=== PATIENT | male | born 1950 | race Caucasian/White ===

== ENCOUNTER → 2023-09-16 06:21 | Day surgery (SDC) | payer MEDICARE, OTHER, SELFPAY ==
[2023-09-16 07:44] LABS: Glucose - Point of Care 124 mg/dl (70-99)
== END ==
LOC: GI 06:21
PROVIDERS: ATTENDING PHYSICIAN Internal Medicine Gastroenterology
DX: Z12.11 Encounter for screening for malignant neoplasm of colon (principal); Z86.010 Personal history of colon polyps; K64.8 Other hemorrhoids; Q43.8 Other specified congenital malformations of intestine; D12.0 Benign neoplasm of cecum; D12.2 Benign neoplasm of ascending colon; D12.3 Benign neoplasm of transverse colon; D12.5 Benign neoplasm of sigmoid colon
CPT/HCPCS: 45385; 88305; 82962

== ENCOUNTER 2024-10-11 16:47 | Emergency (ER) | payer MEDICARE, OTHER, SELFPAY ==
[2024-10-11 17:03] VITALS: BP 123/64
--- NOTE | 2024-10-11 17:06 | ED.SKININJ ---
HPI-Injury
<Kenny Quarles PA-C - Last Filed: 10/11/24 17:07>
General
Chief Complaint: Skin Problem
Time Seen by Provider: 10/11/24 20:37
<Janneth Brooks PA-C - Last Filed: 10/11/24 23:46>
General
Source: patient
Exam Limitations: none
History of Present Illness-Injury
Initial Injury comments:
73yoM with a history of hypertension, hyperlipidemia, prediabetes, and obesity presenting for evaluation of left leg redness and swelling x 2 weeks. Symptoms were initially present on both legs but the right leg now appears normal. His erythema
and swelling seems to actually be somewhat improved from symptom onset. He denies any pain to the extremity. He mention his symptoms to his PCP today during his office visit and he was sent to the ED for evaluation. Patient denies any fevers,
chills, chest pain, shortness of breath. No prior history of MRSA. Patient was seen in the ED in April 2022 for similar complaints and was prescribed Keflex.
ED Provider Triage
<Kenny Quarles PA-C - Last Filed: 10/11/24 17:07>
-
Patient seen by provider in Triage?: Seen in Triage
Attestation: A medical screening examination has been initiated by a qualified medical provider. Based on the assessment performed at this time, it has been determined that an emergent medical condition may exist and the patient has been informed
that further medical evaluation and possible additional diagnostic testing may be needed.
HPI: 73-year-old male prediabetic with history of hypertension hyperlipidemia presents with swelling redness and pain to the left leg. Initially seen by family doctor sent in for treatment of cellulitis. He denies fever. Not currently on an
antibiotic. Exam in triage room consistent with swollen erythematous leg. Basic labs ordered venous ultrasound ordered
GENERAL: Alert , in no apparent distress
EYE: No visual abnormalities.
NECK: Trachea midline
ENT: No visible abnormalities.
LUNGS: No acute respiratory distress
NEUROLOGICAL: Alert and oriented
SKIN: Skin intact. No visible changes.
MUSCULOSKELETAL: Moving extremities normally
PSYCH: Normal and appropriate interaction.
This is a medical evaluation conducted in person to initiate diagnostic evaluation and provide initial therapeutics. Please see further documentation by the treating clinician.
Phy Exam
<Janneth Brooks PA-C - Last Filed: 10/11/24 23:46>
General Physical Exam
General Presentation: well appearing and no apparent distress
General age: appears stated age
General Skin: warm and dry
General Habitus: normal
General Mental: alert
ENT Exam
ENT Exam: normocephalic
Pulmonary Exam
Pulmonary Exam: no respiratory distress
Neurological Exam
Neurological Exam: alert
[place] Coma Scale
Eye Opening: Spontaneous
Verbal Response: Oriented
Motor Response: Obeys Commands
GCS Total Score: 15
Skin Exam
Skin Exam: warm/dry and other (Left leg: Erythema noted to the distal aspect of the L lower leg. Mildly warm to touch. 2-3+ edema noted. No wounds, drainage, or fluctuance. Extremity warm and well perfused. )
Psychiatric Exam
Psychiatric Exam: normal mood/affect
Course
<Kenny Quarles PA-C - Last Filed: 10/11/24 17:07>
Orders/Labs/Results
Orders:
Orders
10/11/24 17:06
Venous Doppler Lwr Ext Left [US Periph Venous LOWER Ext LT] Urgent
Comment:
Reason For Exam: swelling
10/11/24 17:12
Complete Blood Count/With Diff Urgent
Comprehensive Metabolic Panel Urgent
10/11/24 20:48
Cephalexin Monohydrate [Keflex] 500 mg PO NOW STA
Abnormal Lab Results
10/11/24
17:12
RBC 3.75 L 10^6/uL
(4.70-6.10)
Hgb 11.3 L g/dL
(13.0-18.0)
Hct 35.0 L %
(39.0-52.0)
MCHC 32.3 L g/dL
(33.0-37.0)
Absolute Neuts (auto) 7.2 H 10^3/uL
(1.4-6.5)
Absolute Monos (auto) 1.0 H 10^3/uL
(0.1-0.6)
Lymphocytes % 12.3 L %
(20.5-51.1)
Monocytes % 10.1 H %
(1.7-9.3)
BUN 27 H mg/dl
(9-20)
Creatinine 1.6 H mg/dL
(0.7-1.3)
Glucose 122 H mg/dl
(70-99)
10/11/24 17:12
10/11/24 17:12
Vital Signs
Initial and Last Documented VS:
Initial Vital Signs
Temp Pulse Resp BP Pulse Ox
98.3 F 92 20 123/64 97
10/11/24 17:03 10/11/24 17:03 10/11/24 17:03 10/11/24 17:03 10/11/24 17:03
Last Documented Vital Signs
Temp Pulse Resp BP Pulse Ox
98.9 F 84 18 127/66 97
10/11/24 20:30 10/11/24 20:30 10/11/24 20:30 10/11/24 20:30 10/11/24 20:30
Willielt;Janneth Brooks PA-C - Last Filed: 10/11/24 23:46>
Orders/Labs/Results
Orders:
Orders
10/11/24 17:06
Venous Doppler Lwr Ext Left [US Periph Venous LOWER Ext LT] Urgent
Comment:
Reason For Exam: swelling
10/11/24 17:12
Complete Blood Count/With Diff Urgent
Comprehensive Metabolic Panel Urgent
10/11/24 20:48
Cephalexin Monohydrate [Keflex] 500 mg PO NOW STA
Abnormal Lab Results
10/11/24
17:12
RBC 3.75 L 10^6/uL
(4.70-6.10)
Hgb 11.3 L g/dL
(13.0-18.0)
Hct 35.0 L %
(39.0-52.0)
MCHC 32.3 L g/dL
(33.0-37.0)
Absolute Neuts (auto) 7.2 H 10^3/uL
(1.4-6.5)
Absolute Monos (auto) 1.0 H 10^3/uL
(0.1-0.6)
Lymphocytes % 12.3 L %
(20.5-51.1)
Monocytes % 10.1 H %
(1.7-9.3)
BUN 27 H mg/dl
(9-20)
Creatinine 1.6 H mg/dL
(0.7-1.3)
Glucose 122 H mg/dl
(70-99)
10/11/24 17:12
10/11/24 17:12
Vital Signs
Initial and Last Documented VS:
Initial Vital Signs
Temp Pulse Resp BP Pulse Ox
98.3 F 92 20 123/64 97
10/11/24 17:03 10/11/24 17:03 10/11/24 17:03 10/11/24 17:03 10/11/24 17:03
Last Documented Vital Signs
Temp Pulse Resp BP Pulse Ox
98.9 F 84 18 127/66 97
10/11/24 20:30 10/11/24 20:30 10/11/24 20:30 10/11/24 20:30 10/11/24 20:30
<Janneth Brooks PA-C - Last Filed: 10/11/24 23:46>
MDM/Problems Addressed
Differential Diagnosis Includes:
73yoM here with L lower leg redness/swelling x 2 weeks. Symptoms actually somewhat improved. Sent here by PCP. Denies f/c. VSS. He is well-appearing in no acute distress. Exam reveals edema and erythema to the distal left leg. Extremity is
neurovascularly intact. Differential diagnosis includes but is not limited to: Cellulitis, chronic venous stasis changes, DVT, no evidence of abscess/NSTI
Workup obtained in triage. Venous duplex is negative for DVT. White count normal. Creatinine is 1.6, unclear baseline as no prior labs are available for comparison. Repeat vitals remain normal. No indication for hospitalization at this time.
He was started on a course of Keflex. Advised elevation and compression stockings to help with swelling. Advised close follow-up with PCP and ED return precautions discussed. Patient in agreement with plan and was discharged in stable condition.
<Janneth Brooks PA-C - Last Filed: 10/11/24 23:46>
*Critical Care Note
Total Time (30-74mins, 75-104mins- exclusive of procedures): Not Applicable
ED Attending Note
<Kenny Quarles PA-C - Last Filed: 10/11/24 17:07>
-
Portions of this chart may have been created with voice recognition software.� Occasional wrong word or��sound alike� substitutions may have occurred due to the inherent limitations of voice recognition software.
Discharge Plan
Departure
Patient Disposition: Home (Routine Discharge)
Date of Disposition: 10/11/24
Time of Disposition: 20:50
Patient with high blood pressure during this ER visit?: No
Discharge Problem:
Cellulitis of left lower extremity
Instructions: Cellulitis (Skin Infection), Adult (DC)
Prescriptions:
New
cephalexin 500 mg capsule
500 mg PO Q6H 7 Days Qty: 27 0RF
No Action
cephalexin 500 mg capsule
500 mg PO QID 7 Days Qty: 28 0RF
Activity Restrictions/Additional Instructions:
Take antibiotics as prescribed. Elevate your leg and wear compression stockings to help with swelling.
Please follow-up with your family doctor next week. Return to the ER with any worsening symptoms, spreading redness, fevers, or chills.
Interventions
Interventions:
*Risk Screen - Suicide Last Done: 10/11/24 17:03
*General Assessment Last Done: 10/11/24 17:03
*Neglect/Abuse Screening Last Done: 10/11/24 17:03
ED- Fall Risk Assessment Last Done: 10/11/24 20:55
*ED COVID-19 Vaccine History Last Done: 10/11/24 17:03
*Nursing Disposition Last Done: 10/11/24 20:55
ED-Skin Assessment Last Done: 10/11/24 20:55
Discharge Date and Time
Discharge Date/Time: 10/11/24 21:12
Print Language: TAMAZIGHT
[2024-10-11 17:24] LABS: % Basophils 0.4 % (0-2); % Eosinophils 3.2 % (0-6); % Immature Granulocytes 0.4 % (0-0.5); % Lymphocytes 12.3 % (20.5-51.1); % Monocytes 10.1 % (1.7-9.3); % Neutrophils 73.6 % (42.2-75.2); Absolute Eosinophils 0.3 10^3/uL (0-0.7); Absolute Lymphocytes 1.2 10^3/uL (1.2-3.4); Absolute Neutrophils 7.2 10^3/uL (1.4-6.5); Hemoglobin 11.3 g/dL (13.0-18.0); Mean Corp Hgb Conc. 32.3 g/dL (33.0-37.0); Mean Corpuscular Hgb 30.1 pg (27.0-31.0); Mean Corpuscular Volume 93.3 fL (80.0-94.0); Mean Platelet Volume 9.4 fL (7.4-10.4); Nucleated Red Blood Cells % 0 % (-); Platelet Count 202 10^3/uL (130-400); Red Blood Cell Count 3.75 10^6/uL (4.70-6.10); Red Cell Dist. Width 13.5 % (11.5-14.5); White Blood Cell Count 9.7 10^3/uL (4.8-10.8)
[2024-10-11 17:36] LABS: ALT (SGPT) 23 U/L (0-50); AST (SGOT) 23 U/L (17-59); Albumin 4.4 g/dl (3.5-5.0); Alkaline Phosphatase 100 U/L (38-126); Blood Urea Nitrogen 27 mg/dl (9-20); Calcium 9.1 mg/dl (8.4-10.2); Carbon Dioxide 23 mmol/L (22-30); Chloride 102 mmol/L (98-107); Glucose 122 mg/dl (70-99); Potassium 4.1 mmol/L (3.5-5.1); Sodium 137 mmol/L (135-145); Total Bilirubin 0.8 mg/dl (0.2-1.3); Total Protein 7.2 g/dl (6.3-8.2); eGFR 44.93
[2024-10-11 20:30] VITALS: BP 127/66
[2024-10-11] MEDS: KEFLEX 500 MG PO (20:52)
== END 2024-10-11 21:12 | disposition home or self-care (01) ==
LOC: EMR 16:47
PROVIDERS: Physician Assistant; EMERGENCY PHYSICIAN Emergency Medicine; FAMILY PHYSICIAN Physician Assistant Medical
DX: L03.116 Cellulitis of left lower limb (principal); R22.42 Localized swelling, mass and lump, left lower limb; I10 Essential (primary) hypertension; E78.00 Pure hypercholesterolemia, unspecified; R73.03 Prediabetes; E66.9 Obesity, unspecified
CPT/HCPCS: 99284; 80053; 85025; 93971

== ENCOUNTER 2024-11-08 13:11 | Inpatient (IN) | payer MEDICARE, OTHER, SELFPAY ==
[2024-11-08] VITALS (19 sets, daily range): BP systolic 77–181; BP diastolic 53–151; BMI 32.9; BMI 31.3
--- NOTE | 2024-11-08 09:50 | ED.GENMED ---
History of Present Illness
General
Chief Complaint: Fall
Source: patient and ambulance crew
Time Seen by Provider: 11/08/24 09:40
History of Present Illness
History of Present Illness:
74-year-old male with past medical history of hypertension, hyperlipidemia, [id number] diabetes presenting to the ER via EMS from home after he reportedly fell this past Wednesday and has been on the ground since, unable to get himself up,
found by his niece who contacted EMS. Patient states that the day of the fall he was walking to the dining room with coffee and sandwich and hand and states he is overall unsure as to how he fell but was unable to get himself up off the ground.
Patient notes that he has chronic back pain and when this flares he will sometimes need to use an assistive device to walk but normally ambulates without any significant difficulty or need for assistive device on a regular basis. Patient states his
only concern presently is he aggravated his back pain during the fall. Patient denies any headache, visual disturbances, focal weakness or numbness, chest pain, shortness of breath, abdominal pain, nausea, vomiting or any other concerns. Denies
any use of anticoagulants. Patient does note that at the end of August his and he has been living on his own since that time. He reports significant constipation in the 3 weeks following his 's passing and that his primary
care provider had given him medication to help him go to the bathroom and states after taking that medicine he had significant diarrhea but states this did help the constipation.
Past History
Past History
ED Past Medical History: HTN, Hypercholesterolemia and NIDDM
ED Past Surgical History: Orthopedic
Social History
Tobacco: Non-smoker
Alcohol: None
Drug: None
Personal:
Living: alone
Review of Systems
Review of Systems
All Other Systems: ROS reviewed and negative except as documented in HPI and ROS
Phy Exam
Physical Exam
Physical Exam:
GENERAL: Alert , in no apparent distress, malodorous, smells of old urine and feces, patient covered in feces along the urogenital region, back and buttock
EYE: clear conjunctiva b/l
HEAD: NCAT
ENT: mmm.
CARDIAC: Regular rate and rhythm .
LUNGS: Clear breath sounds bilaterally, no acute respiratory distress, no wheezes/rales/rhonchi
ABDOMEN: Soft, without focal tenderness, no r/g, no cvat
NEUROLOGICAL: Alert and oriented to person place and time
SKIN: Warm and dry, significant skin breakdown/sacral decubitus ulcer ranging from stage I to stage II. There is also stage I pressure ulcer to the upper back
MUSCULOSKELETAL: No edema, well perfused.
PSYCH: Normal and appropriate interaction.
Scores
Heart Failure Risk
Heart Failure Risk Score: Not Applicable
Heart Score for Chest Pain Patients
STEMI patient?: Not applicable
Withdrawal Assessment of Alcohol
Withdrawal Assessment Completed?: Not applicable
Course
Orders/Labs/Results
Orders:
Orders
11/08/24 09:48
Electrocardiogram (*1) Urgent
Reason for Study: Syncope
EKG- Treatment ONCE
11/08/24 09:49
CT Head W/o Iv Contrast Urgent
Comment:
Reason For Exam: fall, weakness
11/08/24 09:57
CPK [Creatine Phosphokinase] Urgent
Complete Blood Count/With Diff Urgent
Comprehensive Metabolic Panel Urgent
Magnesium Urgent
Urinalysis Reflex To Culture Urgent
Date Specimen was Collected: 11/08/24
Time Specimen was Collected: 09:54
Urine Microscopic Reflex Cult Urgent
11/08/24 10:33
0.9% Sodium Chloride 1000 ml [Nss] 1,000 ml IV BOLUS
11/08/24 12:46
Admit/Transfer Patient As Directed
Co-Sign Provider:
Level of Care: Inpatient admission
Assign to:: Telemetry
Physician / Group: Ayo Demarco
Diagnosis: Ambulatory dysfunction
Reason for Telemetry: Arrhythmia
Date to Stop Telemetry: 11/11/24
Time to Stop Telemetry: 11:00
Reason for Hospitalization: Ambulatory dysfunction, traumatic fall, cellulitis
Expected length of stay greater than two midnights?: Yes
ELOS- Estimated Length of Stay in days: 3
I certify the patient meets the requirements for IP care: Yes
11/08/24 12:48
PRN Pain Medication Management As Directed
May give lesser potent ordered pain med per pt: Yes
preference::
Protocol:: Medication orders for pain may be administered in a
manner that supports deferring to patient preference
when the pt is:
- Requesting an ordered lesser potent pain medication.
Least to most potent pain medications are defined
as: acetaminophen < NSAID < tramadol < opioids
(morphine, oxycodone, hydromorphone).
- Requesting a lesser dose of the same medication IF
ORDERED.
- Requesting a less intrusive route of administration
if both routes are prescribed by the provider (PO <
IV).
11/08/24 12:58
Code Status As Directed
Resuscitation Status: Full Code
11/11/24 11:00
DC Protocol for Telemetry ONCE
Abnormal Lab Results
11/08/24
09:57
WBC 15.8 H 10^3/uL
(4.8-10.8)
RBC 4.38 L 10^6/uL
(4.70-6.10)
Abs Immat Gran (auto) 0.1 H 10^3/uL
(0-0.05)
Absolute Neuts (auto) 13.1 H 10^3/uL
(1.4-6.5)
Absolute Lymphs (auto) 1.0 L 10^3/uL
(1.2-3.4)
Absolute Monos (auto) 1.6 H 10^3/uL
(0.1-0.6)
Immature Gran % 0.6 H %
(0-0.5)
Neutrophils % 82.9 H %
(42.2-75.2)
Lymphocytes % 6.0 L %
(20.5-51.1)
Monocytes % 10.1 H %
(1.7-9.3)
Sodium 150 H mmol/L
(135-145)
Chloride 113 H mmol/L
(98-107)
BUN 83 H mg/dl
(9-20)
Creatinine 2.1 H mg/dL
(0.7-1.3)
Glucose 174 H mg/dl
(70-99)
Creatine Kinase 295 H U/L
(55-170)
Urine Ketones 1+ A
(Negative)
Urine Albumin (Reflex) 2+ A
(Neg - Trace)
11/08/24 09:57
11/08/24 09:57
Vital Signs
Initial and Last Documented VS:
Initial Vital Signs
Temp Pulse Resp BP Pulse Ox
97.8 F 103 18 181/94 99
11/08/24 09:45 11/08/24 09:45 11/08/24 09:45 11/08/24 09:45 11/08/24 09:45
Last Documented Vital Signs
Temp Pulse Resp BP Pulse Ox
97.8 F 167 30 162/151 97
11/08/24 09:45 11/08/24 13:15 11/08/24 13:15 11/08/24 13:00 11/08/24 13:15
MDM/Problems Addressed
Differential Diagnosis Includes:
Electrolyte derangement, acute kidney injury, rhabdomyolysis, deconditioning, stroke, intracranial bleeding, diabetic complication
MDM/Problems Addressed:
74-year-old male presenting to the emergency department via EMS for evaluation after he was found by family, reports a fall on Wednesday and has been on the ground since that time. Patient with significant skin breakdown on back and buttock. Notes he
was having large-volume stool following laxative due to constipation. Possible electrolyte derangement due to the fluid loss, concern for acute kidney injury/rhabdomyolysis due to being on the ground for extended period of time. Patient clearly
not a candidate to be discharged home given he was unable to get himself up off the ground for 5 days. Will check labs, EKG, CT of the head. Wound care initiated. Plan to admit patient to hospitalist team for further treatment
*Radiology
Radiology exam reviewed: radiology read reviewed
*Pulse Oximetry
Patient hypoxic: no
*EKG
Interpreted by ED Provider?: Yes
Heart Rate: 103
Rate: tachycardiac
Rhythm: sinus and PAC's
Gillett: normal axis
Ischemia: no ischemia
*Critical Care Note
Total Time (30-74mins, 75-104mins- exclusive of procedures): Not Applicable
Data Reviewed
Review of Other/Old Records Reveals: Labs and Records
Patient Management
Discussion with other providers: Hospitalist
Escalation/DeEscalation of care consider admission/obs:
Patient's labs show a leukocytosis which is likely reactive, he has acute kidney injury and mild hyponatremia likely dehydration related. Patient otherwise remained stable, CT of the head was unremarkable. Hospitalist team to admit.
ED Attending Note
-
Portions of this chart may have been created with voice recognition software.� Occasional wrong word or��sound alike� substitutions may have occurred due to the inherent limitations of voice recognition software.
Discharge Plan
Departure
Patient Disposition: Admit
Date of Disposition: 11/08/24
Time of Disposition: 11:14
Presentation/result/management discussed w/ accepting MD/DO: Hospitalist
Discharge Problem:
Generalized weakness, MARC (acute kidney injury), Accidental fall, Hypernatremia
Interventions
Interventions:
*Risk Screen - Suicide Last Done: 11/08/24 09:45
*General Assessment Last Done: 11/08/24 09:45
*Neglect/Abuse Screening Last Done: 11/08/24 09:45
*ED COVID-19 Vaccine History Last Done: 11/08/24 09:45
ED-Musculoskeletal Assessment Last Done: 11/08/24 09:45
ED- Neurological Assessment Last Done: 11/08/24 09:45
ED-Skin Assessment Last Done: 11/08/24 09:45
[2024-11-08 10:25] LABS: ALT (SGPT) 18 U/L (0-50); AST (SGOT) 25 U/L (17-59); Albumin 4.1 g/dl (3.5-5.0); Alkaline Phosphatase 117 U/L (38-126); Blood Urea Nitrogen 83 mg/dl (9-20); Calcium 9.5 mg/dl (8.4-10.2); Carbon Dioxide 22 mmol/L (22-30); Chloride 113 mmol/L (98-107); Estimated Creatinine Clearance 43 ml/min; Glucose 174 mg/dl (70-99); Magnesium 2.3 mg/dl (1.6-2.3); Potassium 4.6 mmol/L (3.5-5.1); Sodium 150 mmol/L (135-145); Total Bilirubin 0.7 mg/dl (0.2-1.3); Total Protein 7.4 g/dl (6.3-8.2); eGFR 32.22
[2024-11-08 10:33] LABS: Creatine Phosphokinase 295 U/L (55-170)
[2024-11-08 10:47] LABS: Urine Albumin 2+ (Neg - Trace); Urine Bilirubin Negative (Negative); Urine Character Clear (Clear); Urine Color Yellow; Urine Glucose Negative (Negative); Urine Ketone 1+ (Negative); Urine Leukocyte Negative (Negative); Urine Nitrite Negative (Negative); Urine Occult Blood Negative (Negative); Urine Urobilinogen Negative (Neg - 1+)
[2024-11-08 11:12] LABS: % Basophils 0.3 % (0-2); % Eosinophils 0.1 % (0-6); % Immature Granulocytes 0.6 % (0-0.5); % Monocytes 10.1 % (1.7-9.3); % Neutrophils 82.9 % (42.2-75.2); Absolute Immature Granulocytes 0.1 10^3/uL (0-0.05); Absolute Monocytes 1.6 10^3/uL (0.1-0.6); Absolute Neutrophils 13.1 10^3/uL (1.4-6.5); Hematocrit 40.5 % (39.0-52.0); Hemoglobin 13.5 g/dL (13.0-18.0); Mean Corp Hgb Conc. 33.3 g/dL (33.0-37.0); Mean Corpuscular Hgb 30.8 pg (27.0-31.0); Mean Corpuscular Volume 92.5 fL (80.0-94.0); Mean Platelet Volume 9.6 fL (7.4-10.4); Nucleated Red Blood Cells % 0 % (-); Platelet Count 301 10^3/uL (130-400); Red Blood Cell Count 4.38 10^6/uL (4.70-6.10); Red Cell Dist. Width 13.6 % (11.5-14.5); White Blood Cell Count 15.8 10^3/uL (4.8-10.8)
[2024-11-08] MEDS: NSS 1000 IV ×2 (11:14→18:33)
[2024-11-08 11:42] LABS: Urine Mucus Many
[2024-11-08 11:43] LABS: Urine Amorphous Seen
[2024-11-08 11:46] LABS: Urine Red Blood Cell 0-2 /HPF (0-2); Urine Urothelial Cell 0-2 /LPF (FEW); Urine White Cell 0-2 /HPF (0-5)
--- NOTE | 2024-11-08 13:45 | HPS.HSE ---
Addendum entered and electronically signed by Ayo Demarco MD 11/09/24 13:37:
74 male history of hypertension hyperlipidemia type 2 diabetes prostate CA s/p radiation therapy and Gout
Presents after being found by niece on the floor x 5 days. States he believed he tripped over a chair that was in front of the freezer as he states that he was able to place his coffee cup on the countertop before falling. He is found in his feces
and urine.
Noted to have a Cr of 2.1 with a baseline of 1.6. CK less than 300. While in the ED I noted that
He had an irregular rhythm. Telemetry difficult to tell if SVT or irregular rhythm such as SVT with abbrency. Therefore, attempted vagal maneuvers with a decrease in heart rate by 30 point however with rebound quickly to the 140s 160s.
Fall, sounds mechanical
-PT/OT
SVT/SVT with abbrency
-Started on IV Amio
-Tele
-2d echo
-Tsh
MARC on CKD stage 3a/3b
Likely related to dehydration
-RBUS
-Urine studies
-IVF
-Avoid nephrotoxins and hypotension
HTN
-Antihypertensive held for lower BP
-Once BP improved can resume slowly
TypeII DM
-On metformin (held)
-Accucheck, SSI, Bg 140-180, CCdiet
B12 Def
-Provide supplementation
Original Note:
Family Physician
-
Family Physician: Corie Rogers
Chief Complaint
-
Ambulatory dysfunction, recent fall, bilateral lower extremity redness
History of Present Illness
74-year-old male with past medical history of hypertension, hyperlipidemia, type 2 diabetes, prostate cancer status post radiation therapy 01/03/2024 and gout presented to the ER via EMS after falling on Wednesday and unable to get himself up off the
ground since then. He was found by his niece who contacted EMS. He was found covered in urine and feces. He stated prior to the fall, he felt unsteady on his feet. But he denies any feelings of passing out, passing out, dizziness as he remembered
to put his coffee on the counter before falling so that the cup would not break. On the floor, he was mostly on his right side of his body and back. He did try to scoot on the floor which resulted in rug banda. He denies any chest pain, shortness
of breath, heart palpitations, fevers, chills, sore throat, headache, cough, nausea, vomiting, diarrhea, numbness, tingling, vision changes, dizziness.. Of note, patient had increased bilateral lower extremity redness and swelling. By Wednesday
afternoon, the swelling and redness went down. He states he believes it is due to being out of all of the extra fluid in his body. He had a cardiology appointment scheduled for November 15 to evaluate the cause of his bilateral lower extremity
swelling. He generally sleeps in a recliner due to back pain, has had increased shortness of breath with exertion recently.
He was here in the ED on 10/11 due to left leg swelling and redness. He stated prior to coming in he had bilateral lower extremity swelling, however after coming in for what ever reason his right leg decreased in size. He was sent home on 10 days
of Keflex for cellulitis. He stated the redness stayed since his visit to the ED despite the antibiotics until that Wednesday.
Patient stated that his in August, and since then he has not been doing well.
In the ED on admission BP 152/114, HR 103, RR 18, 97.8 F, 98% on room air, WBC 15.8, Na 150, BUN 83, Cr 2.1, CK 295. Head CT (-) for bleed, UA no infx, EKG sinus tach with PVC. s/p 1L NSS. However, while in ED, HR increased into 150-160s. Repeat EKG
revealed a.flutter. Vagal maneuvers were ineffective. BP started to drop to 77/53. After discussion with ED docs, 500cc bolus given and BP improved. Cardiology consulted.
Medical History
Past Medical History
Past Medical History: Reports Other
Additional Past Medical History:
HTN, HLD, DMII, Prostate cancer s/p radiation therapy 12/2023, gout
Past Surgical History: Reports Other (Cataract, knee arthoscopy, back surgery 1983)
Social History
Tobacco: Former Smoker (Quite in 1983, prior 20 years )
Alcohol: Occasional
Drug: None
Personal: Single
Living: Alone
Employment: Retired
Family History
Family History: Other (Father leukemia, Mother skin cancer, paternal uncle pancreatic cancer, maternal aunt DM)
Allergies / Home Medications
Allergies reflects when Allergies were last updated in [facility] [email or web address].
Home Medications with original date entered in [facility] [email or web address]
Allergy/Medication List:
Allergies
Allergy/AdvReac Type Severity Reaction Status Date / Time
No Known Allergies Allergy Verified 10/11/24 17:06
Home Medications
amlodipine 10 mg-benazepril 40 mg capsule 1 cap PO DAILY 11/08/24
atorvastatin 10 mg tablet 10 mg PO QPM 11/08/24
benzocaine 10 % mucosal gel (Anbesol (benzocaine)) 1 applic mucous membrane DAILYPRN PRN gum pain 11/08/24
clotrimazole-betamethasone 1 %-0.05 % topical cream 1 applic topical DAILYPRN PRN whole body rash 11/08/24
hydrochlorothiazide 50 mg tablet 50 mg PO DAILY 11/08/24
ibuprofen 200 mg tablet 400 mg PO Q6HPRN PRN head ache 11/08/24
metformin 500 mg tablet 500 mg PO QPM 11/08/24
tamsulosin 0.4 mg capsule 0.4 mg PO HS 11/08/24
Review of Systems
-
History Source: Patient
Constitutional: Reports No Symptoms
EENT: Reports No Symptoms
Respiratory: Reports No Symptoms
Cardiac: Reports No Symptoms
Abdomen/GI: Reports No Symptoms
Skin: Reports No Symptoms
Neurological: Reports Weakness; Denies Numbness
Psych: Reports Calm
Physical Exam
Vital Signs
Vital Signs
Temp Pulse Resp BP Pulse Ox
97.8 F 167 30 162/151 97
11/08/24 09:45 11/08/24 13:15 11/08/24 13:15 11/08/24 13:00 11/08/24 13:15
Physical Exam
General: No Apparent Distress and Comfortable
HEENT: NormoCephalic
Respiratory: Clear
Cardiac: Irregular Rhythm and Tachycardia
GI: Soft, Non Distended, Normal Bowel Sounds and Tender
Genito-urinary: Deferred by me
Musculoskeletal: No Edema
Skin: Warm, Dry and Rash (Sacrum )
Neuro: AO x 3 and Other (Muscle strength 2-3/5 of bilateral hip flexors, sensation intact, flexion and dorsiflexion 5/5 strength bilateral. )
Psych: Calm
Laboratory Results
-
11/08/24 09:57
Laboratory Results
Total Bilirubin 0.7 mg/dl (0.2-1.3) 11/08/24 09:57
AST 25 U/L (17-59) 11/08/24 09:57
ALT 18 U/L (0-50) 11/08/24 09:57
Alkaline Phosphatase 117 U/L (38-126) 11/08/24 09:57
Impression/Plan
-
74-year-old male with past medical history of hypertension, hyperlipidemia, type 2 diabetes, prostate cancer status post radiation therapy 01/03/2024 and gout presented to the ER via EMS after falling on Wednesday and unable to get himself up off the
ground since then. Developed atrial flutter in ED and hypotensive. Cardiology appreciated.
PLAN:
#Atrial flutter
-HR 150s-160s in ED, EKG a. flutter
-Denies any history of a.fib/flutter, denies any heart palpitations, SOB, not on any rate controlling agents
-Hypotensive s/p 1.5 L nss in ED
-Admit to IMU
-Keep K>4 and Mg >2
-CHADS-VASC score 4
-TSH pending
-Cardiology consulted and appreciated
#Hypotension
-BP 77/53 in ED
-500cc fluid bolus improved
-Admit to IMU with atrial flutter and concerns for pressor requirements
#Ambulatory dysfunction/fall
#Dehydration after 5 days
-Down for 5 days
-Denies any feelings of dizziness, passing out. Just felt unsteady on feet and fell
-Admits to back pain, but no urinary or bowel inconstance, numbness or tingling. Sensation intact, plantar and dorsiflexion full strength
-Unable to lift his legs off the bed with resistance
-Cause of fall unclear
-PT/OT
-CK 295
-Maintenance fluids for dehydration
-Repeat CK in am
#Bilateral lower extremity swelling and redness
-Stated had cardiology appointment scheduled for November 15 with nutritionist for eval of bilat lower extremity swelling
-Bilat swelling got better after not being able to drink while down for 5 days
-Echo pending
-No BNP as dehydrated
-Appreciate cardiology
#Leukocytosis
#Stage 2 sacral wounds
-Does not appear to have cellulitis
-Wound care consult
-Likely due to being down for 5 days
-Monitor WBC curve and temp without anti-biotics
#MARC
-Cr 2.1, baseline appears around 1.6
-Likely secondary to severe dehydration
-Fluids
-Renal and bladder US pending
-Urine osm, Cr pending
-Avoid nephrotoxic agents
#Hypernatremia
-150 on admission
-Likely due to dehydration
-Repeat BMP pending
#HTN
-Anti-hypertensive medications on hold
-Restart upon improvement
#HLD
Cont statin
DMII
-Metformin on hold until renal function improves
-Hga1c pending
Hx prostate cancer s/p radiation therapy december 2023
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
-Cont tamsulosin
Full Code
DVT heparin
Diabetic diet
[2024-11-08 14:29] LABS: Phosphorus 3.8 mg/dl (2.5-4.5)
--- NOTE | 2024-11-08 15:48 | CON.CAR ---
Addendum entered and electronically signed by Bhupendra Orellana MD 11/08/24 17:23:
I saw and examined the patient.
The [employer] LOC[employer]IVE CRANE OPERATOR's note was reviewed and I agree with the note.
Pt was to see Dr. Haque in our office for LE edema. Today he has at most trivial to no edema.
Comment: We know the onset of flutter was 1230 hrs today 11/08/2024.
We will start oral anticoagulation.
We will obtain rate and rhythm control with IV Amiodarone. Will make NPO after midnight in case he is still in flutter and we chose to cardiovert him.
He will need an echo to assess cardiac structure and function.
Original Note:
Consultation
Consultation Request
Date/Time Consultation Requested: 11/08/24 1500
Date/Time Consultation Performed: 11/08/24 1550
Requesting Provider: Dr. Cleveland
Performing Provider: Janet NAYLOR for Dr. Orellana
Reason for Consultation: atrial flutter
Medical History
-
Chief Complaint: fall and found on ground
History of Present Illness:
74 y/o male (scheduled to see Dr. Haque as new patient next week for edema, HTN per chart) with hx HTN, HLD, DM, back pain. Recently treated as OP for cellulitis. He reports that on Wednesday he was walking around his kitchen and felt himself start
to fall, so put his coffee on the table, then fell to his right side. He said at no point did his lose consciousness. He scooted himself to the living room, but couldn't get up. He was reportedly found in urine and feces. He told me he couldn't get
to his phone. In the ER, he was in SR on arrival, but around 1230 was noted to be in Aflutter around 150 BPM. BP was low and fluids were given. BP still on low end. He is not symptomatic with this.
Past Medical History
Past Medical History: Cancer, HTN, Hypercholesterolemia and NIDDM
Social History
Tobacco: Former Smoker (quit 1983)
Personal: ( of 51 years in August)
Family History
Family History: Reviewed & Not Pertinent
Allergies / Home Medications
Allergy/AdvReac Type Severity Reaction Status Date / Time
No Known Allergies Allergy Verified 10/11/24 17:06
�Medication �Instructions �Recorded �Confirmed �Type
amlodipine 10 mg-benazepril 40 mg 1 cap PO DAILY 11/08/24 11/08/24 History
capsule
atorvastatin 10 mg tablet 10 mg PO QPM 11/08/24 11/08/24 History
benzocaine 10 % mucosal gel 1 applic mucous membrane DAILYPRN 11/08/24 11/08/24 History
(Anbesol (benzocaine)) PRN gum pain
clotrimazole-betamethasone 1 1 applic topical DAILYPRN PRN 11/08/24 11/08/24 History
%-0.05 % topical cream whole body rash
hydrochlorothiazide 50 mg tablet 50 mg PO DAILY 11/08/24 11/08/24 History
ibuprofen 200 mg tablet 400 mg PO Q6HPRN PRN head ache 11/08/24 11/08/24 History
metformin 500 mg tablet 500 mg PO QPM 11/08/24 11/08/24 History
tamsulosin 0.4 mg capsule 0.4 mg PO HS 11/08/24 11/08/24 History
Review of Systems
-
History Source: Patient
All other systems: Negative unless noted (as above)
Musculoskeletal: Other (fall and inability to get up)
Physical Exam
Vital Signs
Temp Pulse Resp BP Pulse Ox
97.8 F 159 20 77/53 95
11/08/24 09:45 11/08/24 14:30 11/08/24 14:30 11/08/24 14:18 11/08/24 14:30
Lab Results
11/08/24 09:57
Physical Exam
General: Well Developed, Well Nourished and No Apparent Distress
HEENT: Normocephalic and Anicteric
Respiratory: Clear and Non Labored Respirations
Cardiac: Irregular Rhythm
Musculoskeletal: Edema (mild BLE edema, non-pitting)
Skin: Warm and Dry
Neuro: AO x 3
Psych: Calm
Impression / Plan
-
Fall, unable to get up:
-PT/OT consult
-denies dizziness/syncope, but follow tele and check echo
-orthos during hospitalization, but will await better HR control
Atrial flutter: new diagnosis
-fast rates and borderline low BP. He went into atrial flutter around 1230. Will start IV amiodarone, which requires intensive monitoring. Amio will only be temporary.
-[id number] score is 4 for age, HTN, DM. Occasional, but not frequent falls. We discussed Eliquis safety. Will add Eliquis and c/s CM for pricing.
-TSH now
-echo once
HTN:
-monitor
-on CCB/ACEI/diuretic as OP
MARC on CKD:
-monitor s/p IVF
Data Reviewed
-
EKG: Tracing Personally Visualized and interpreted (atrial flutter with aberrant conduction 161 BPM, bifasicular block)
Radiology: Other (awaiting CXR)
CT Scan: Report Reviewed by me (head CT: No acute intracranial abnormality noted.)
Medical Tests (Nuc Med, Echo etc): Other (echo ordered)
Labs: Labs Reviewed by me
[2024-11-08 17:03] LABS: Glucose - Point of Care 150 mg/dl (70-99)
[2024-11-08 17:44] LABS: TSH Reflex To Free T4 1.79 uIU/ml (0.47-4.68)
[2024-11-08] MEDS: CORDARONE 103 MG IV (17:59)
[2024-11-08] MEDS: CORDARONE 518 MG IV (18:07)
[2024-11-08] MEDS: TYLENOL PO ×2 (18:31→23:05)
[2024-11-08] MEDS: LIPITOR 10 MG PO (18:34)
[2024-11-08 18:44] LABS: Glucose - Point of Care 129 mg/dl (70-99)
[2024-11-08] MEDS: TYLENOL 650 MG PO (19:58)
[2024-11-08] MEDS: ELIQUIS 5 MG PO (19:58)
[2024-11-08 20:29] LABS: Blood Urea Nitrogen 82 mg/dl (9-20); Calcium 8.7 mg/dl (8.4-10.2); Carbon Dioxide 21 mmol/L (22-30); Chloride 113 mmol/L (98-107); Estimated Creatinine Clearance 45 ml/min; Glucose 256 mg/dl (70-99); Potassium 4.3 mmol/L (3.5-5.1); Sodium 145 mmol/L (135-145); eGFR 34.16
[2024-11-08 20:32] LABS: Osmolality Serum 328 mOsm/kg (275-300)
[2024-11-08] MEDS: FLOMAX 0.4 MG PO (22:03)
[2024-11-09] VITALS (27 sets, daily range): BP systolic 93–152; BP diastolic 41–96; PULSE 99–102; O2SAT 97–99; BMI 31.9
[2024-11-09] MEDS: TYLENOL PO (04:14)
[2024-11-09] MEDS: NSS 1000 IV (04:22)
[2024-11-09 04:28] LABS: % Basophils 0.3 % (0-2); % Eosinophils 0.4 % (0-6); % Immature Granulocytes 0.5 % (0-0.5); % Lymphocytes 9.4 % (20.5-51.1); % Monocytes 13.2 % (1.7-9.3); % Neutrophils 76.2 % (42.2-75.2); Absolute Eosinophils 0.1 10^3/uL (0-0.7); Absolute Immature Granulocytes 0.1 10^3/uL (0-0.05); Absolute Lymphocytes 1.1 10^3/uL (1.2-3.4); Absolute Monocytes 1.5 10^3/uL (0.1-0.6); Absolute Neutrophils 8.8 10^3/uL (1.4-6.5); Hematocrit 35.2 % (39.0-52.0); Hemoglobin 11.8 g/dL (13.0-18.0); Mean Corp Hgb Conc. 33.5 g/dL (33.0-37.0); Mean Corpuscular Hgb 30.6 pg (27.0-31.0); Mean Corpuscular Volume 91.2 fL (80.0-94.0); Mean Platelet Volume 9.1 fL (7.4-10.4); Nucleated Red Blood Cells % 0 % (-); Platelet Count 226 10^3/uL (130-400); Red Blood Cell Count 3.86 10^6/uL (4.70-6.10); Red Cell Dist. Width 13.7 % (11.5-14.5); White Blood Cell Count 11.5 10^3/uL (4.8-10.8)
[2024-11-09 05:09] LABS: ALT (SGPT) 16 U/L (0-50); AST (SGOT) 30 U/L (17-59); Albumin 3.4 g/dl (3.5-5.0); Alkaline Phosphatase 99 U/L (38-126); Blood Urea Nitrogen 90 mg/dl (9-20); Calcium 8.6 mg/dl (8.4-10.2); Carbon Dioxide 17 mmol/L (22-30); Chloride 112 mmol/L (98-107); Estimated Creatinine Clearance 42 ml/min; Glucose 163 mg/dl (70-99); Magnesium 2.2 mg/dl (1.6-2.3); Phosphorus 3.6 mg/dl (2.5-4.5); Potassium 4.2 mmol/L (3.5-5.1); Sodium 144 mmol/L (135-145); Total Bilirubin 0.7 mg/dl (0.2-1.3); Total Protein 6.4 g/dl (6.3-8.2); eGFR 32.22
[2024-11-09 05:26] LABS: Creatine Phosphokinase 393 U/L (55-170)
[2024-11-09 05:32] LABS: TSH 1.78 uIU/ml (0.47-4.68)
[2024-11-09 05:33] LABS: Glucose - Point of Care 148 mg/dl (70-99)
--- NOTE | 2024-11-09 05:45 | PTCARENOTE ---
Received pt at change of shift. AAOx3. 2 new IV lines placed for IVF at 125 ml/hr and Amio gtt. Amio decreased to 0.5 mg at 01:00. Remains in AFib with rate 110-130s throughout shift. Pt asymptomatic. NPO since midnight. Resting in bed with
call mata in reach.
[2024-11-09 06:07] LABS: Folate 3.9 ng/ml (2.76-20); Vitamin B12 333 pg/ml (239-931)
--- NOTE | 2024-11-09 07:35 | W.PN.HOSP.TC ---
Addendum entered and electronically signed by Ayo Demarco MD 11/09/24 13:38:
Aflutter, New Dx
AMio
DCCV with cards
Eliquis
Addendum entered and electronically signed by Ayo Demarco MD 11/09/24 13:36:
74 male history of hypertension hyperlipidemia type 2 diabetes prostate CA s/p radiation therapy and Gout
Presents after being found by nizonia on the floor x 5 days. States he believed he tripped over a chair that was in front of the freezer as he states that he was able to place his coffee cup on the countertop before falling. He is found in his feces
and urine.
Noted to have a Cr of 2.1 with a baseline of 1.6. CK less than 300. While in the ED I noted that
He had an irregular rhythm. Telemetry difficult to tell if SVT or irregular rhythm such as SVT with aberrancy. Therefore, attempted vagal maneuvers with a decrease in heart rate by 30 point however with rebound quickly to the 140s 160s.
Fall, sounds mechanical
-PT/OT
SVT/SVT with aberrancy
-Started on IV Amio
-Tele
-2d echo
-Tsh
MARC on CKD stage 3a/3b
Likely related to dehydration
-RBUS
-Urine studies
-IVF
-Avoid nephrotoxins and hypotension
HTN
-Antihypertensive held for lower BP
-Once BP improved can resume slowly
TypeII DM
-On metformin (held)
-Accucheck, SSI, Bg 140-180, CCdiet
B12 Def
-Provide supplementation
Original Note:
Today's Communication/Plan
-
Cardioversion
PT/OT
Echo
Transition to PO amnio in PM per cards
Assessment / Plan
Assessment / Plan
74-year-old male with past medical history of hypertension, hyperlipidemia, type 2 diabetes, prostate cancer status post radiation therapy 2023, gout presented to the ED after falling on Wednesday and night and down for 5 days. He was found down by
his niece. Reportedly he was covered in urine and feces when he came in. The day to fall, he felt unsteady on his feet but were enough to put his coffee on the counter before he fell. He denies any loss of consciousness. He did have significant
bilateral lower extremity edema and erythema that got better by Wednesday with no p.o. intake. In the ED, initial vitals were stable, however around 12:30, patient went into a flutter with heart rates in the 150s to 160s and became hypotensive.
Fluid bolus was ordered, but not given as patient's blood pressure increased. Cardiology consulted. He was admitted to IMU and started on amio drip.
#Atrial flutter
-Heart rates in 150s to 160s in ED, EKG flutter
� Admitted to IMU
� Keep K greater than 4, mag greater than 2
� Denies any history of A-fib/flutter, denies any heart palpitations, shortness of breath, not on any rate controlling agents not on anticoagulation
� Cardiology consulted
- Started on amnio drip -> transition to PO amio this evening per cards
- Plan for short term amiodarone course perhaps 3 months 400mg bid x 2 weeks (to end 11/23), then 200mg daily
� [id number] score 4, started on Eliquis per cardiology
�TSH within normal limits
� Echo pending
� Patient kept n.p.o. for cardioversion this a.m.
#Hypotension
-Blood pressure 77/56 in ED
-Improved with fluids
-monitor blood pressure
#Metabolic acidosis
-Switch fluids to 1/2 NSS then discontinue after he starts diet after cardioversion
#Ambulatory dysfunction/fall
#Dehydration after 5 days of no food and water
� CK 295 on admission, increased to 393
- Continue maintenance fluids, however decreased rate from 125 to 100 as patient has increased lower extremity edema and suspect underlying CHF
� PT OT
� Cause of fall unclear
-Mag and Phos currently within normal limits
-Monitor for refeeding syndrome when patient starts eating regularly
#Bilateral lower extremity swelling and erythema
-Had a scheduled cardiology appointment with Dr. Roslyn stoner for evaluation of bilateral lower extremity swelling
� Echo pending
- no BNP is dehydrated
� Appreciate cardiology
#Leukocytosis
#Stage II sacral wounds
�WBC count downtrending, remains afebrile
� Does not appear to have cellulitis
� Wound care consult
� Likely due to being down for 5 days mostly on his right side and back
� Monitor WBC curve and temp without antibiotics
#MARC
� Creatinine 2.1, baseline appears around 1.6
� Likely secondary to severe dehydration
� Continue maintenance fluid
� Renal and bladder ultrasound revealed enlarged prostate, but otherwise unremarkable
� Avoid nephrotoxic agents
� Urine sodium, urine creatinine still pending
#Hypernatremia
� Resolved with fluids
#B12 deficiency
� Started on vitamin B complex supplementation
Hypertension
� Takes amlodipine and hydrochlorothiazide at home
� On hold due to hypotension
� Restart as able
#Type 2 diabetes mellitus
� Hemoglobin A1c pending
� Metformin on hold due to MARC
#History of prostate cancer status post radiation therapy December 2023
#Enlarged prostate
� Continue tamsulosin
Full code
DVT heparin
N.p.o. start diabetic diet after cardioversion
Rlghur-ny-bob's name is Sandi. She is going to get him a life alert. of 51 years in August, and since then he has had a hard time taking care of himself. Recommend further exploration of patient's mental health and consider
starting antidepressant after discussing with patient.
Anticipated Discharge: 24 - 48 hours
Subjective/Interval History
-
Date of Service: November 09, 2024
Objective Data
-
Labs:
Laboratory Results
11/08/24 11/09/24
19:58 04:13
WBC 11.5 H
Hgb 11.8 L
Hct 35.2 L
Plt Count 226 D
Sodium 145 144
Potassium 4.3 4.2
Chloride 113 H 112 H
Carbon Dioxide 21 L 17 L
BUN 82 H 90 H
Creatinine 2.0 H 2.1 H
Glucose 256 H 163 H
Calcium 8.7 8.6
Total Bilirubin 0.7
AST 30
ALT 16
Alkaline Phosphatase 99
Vital Signs:
Vital Signs
Temp Pulse Resp BP Pulse Ox
98.8 F 99 24 96/67 94
11/09/24 03:50 11/09/24 05:00 11/09/24 05:00 11/09/24 05:00 11/08/24 20:00
I&O
11/08/24 11/09/24 11/10/24
06:59 06:59 06:59
Output Total 575 / 575
Balance -575 / -575
Review of Systems
-
History Source: Patient
Respiratory: Reports No Symptoms
Cardiac: Reports No Symptoms
Abdomen/GI: Reports No Symptoms
Genitourinary: Reports No Symptoms
Musculoskeletal: Reports Other (Some right sided rib pain with deep breaths and tenderness with palpation, weakness in legs )
Neuro: Reports No Symptoms
Physical Exam
-
General: No Apparent Distress and Comfortable
HEENT: Normocephalic
Respiratory: Clear to Auscultation
Cardiac: Irregular Rhythm and Tachycardic
GI: Soft, Normal Bowel Sounds and Tender
Musculoskeletal: Other (Bilateral lower extremity edema 2)
Skin: Warm and Dry
Neuro: AO x 3
Psych: Calm
--- NOTE | 2024-11-09 08:15 | PTCARENOTE ---
Patient received from training and development coordinator. Patient resting comfortably in bed. AAO, VSS. No events noted overnight. Complaints of pain on the right flank from fall. Patient is on room air. Currently receiving NSS @ 100mL/hr. Amio gtt at 0.5mg/min and
to remain. Patient scheduled for cardioversion today, time unknown. ECHO ordered as well for today. Wound nurse to see patient today. Call mata in reach.
--- NOTE | 2024-11-09 08:27 | W.PN.CD ---
Addendum entered and electronically signed by Dameon Singh MD 11/09/24 08:34:
plan for short term amiodarone course, perhaps 3 months
Original Note:
Today's Communication / Plan
-
DCCV today
transition IV amiodarone to PO this PM
TTE today
cont eliquis
Impression / Plan
-
Atrial flutter: new diagnosis, seems typical, with elevated rates
-fast rates and borderline low BP. He went into atrial flutter around 1230 11/08.
-continue IV amiodarone, with close monitoring of tele
-transition to PO load this evening, and stop drip at that time
-400mg bid x 2 weeks (to end 11/23), then 200mg daily
-[id number] score is 4 for age, HTN, DM. Occasional, but not frequent falls. Eliquis 5mg bid.
-echo
-DCCV today
HTN:
-monitor
-on CCB/ACEI/diuretic as OP: currently held for low BP
CKD3b
-trend Cr
Dispo
-f/u Dr Haque 11/15, 11am, [facility]
Physical Exam
Vital Signs/Labs
Vital Signs
Temp Pulse Resp BP Pulse Ox
98.8 F 99 24 96/67 94
11/09/24 03:50 11/09/24 05:00 11/09/24 05:00 11/09/24 05:00 11/08/24 20:00
11/08/24 11/09/24 11/10/24
06:59 06:59 06:59
Actual Weight 118.8 kg
11/09/24 04:13
11/09/24 04:13
Magnesium 2.2 mg/dl (1.6-2.3) 11/09/24 04:13
TSH 1.78 uIU/ml (0.47-4.68) 11/09/24 04:13
Physical Exam
Constitutional: No acute distress and Comfortable
EENT: Moist mucous membranes
Cardiovascular: JVD pressure is normal, Systolic murmur absent, Rhythm/rate is irregular and Pedal edema present
Respiratory: Respiratory effort normal and Lungs clear to auscul.
Neuro/Psych: AO x 3
Data Reviewed
-
Date of Service: November 09, 2024
EKG: Other (Tele: atrial flutter 110s)
Labs: Labs Reviewed by me
[2024-11-09 08:44] LABS: Glycohemoglobin (HgbA1c) 5.8 % (4.0-5.6)
[2024-11-09] MEDS: FOLTX 1 TABLET PO (09:07)
[2024-11-09] MEDS: ELIQUIS 5 MG PO ×2 (09:07→20:39)
[2024-11-09 09:14] LABS: HDL Cholesterol 48 mg/dl; LDL Cholesterol, Calculated 66 mg/dl; Total Cholesterol 132 mg/dl (50-199); Triglyceride 93 mg/dl (10-149); Very Low Density Lipoprotein 18 mg/dl (0-30)
[2024-11-09] MEDS: NSS IV (10:18)
--- NOTE | 2024-11-09 10:38 | WOUNDNOTE ---
WO RN note: Patient admitted s/p fall, down for 5 days prior to admission. Patient also admitted with ambulatory dysfunction and describes sliding with heels, legs and buttocks during time down.
See H&P for complete history.
PMH: Diabetes, HTN, prostate cancer, gout
Wound Location and type/assessment: Patient admitted with DTI to sacrum and left heel, right heel stage 2, ecchymosis to buttocks, bilateral hips. See worklist for wound measurements and full description. . Sacrum and buttocks with multiple open
areas. Non-blanchable areas and necrotic tissue noted on sacrum. Left heel with DTI is closed. Right lateral heel with scattered open areas and non-blanchable red skin.
Appetite: States good prior to fall
Pressure redistribution devices in place: Centrella Max Air, turning schedule, fiber filled boots ordered for heels.
Plan: Hydrogel ordered for necrotic areas of sacrum and local wound care ordered for heels. This physician underwriter informed patient regarding DTI and plan of care. Explained to patient that wounds may worsen and that he should follow up at [facility] after
discharge. Also recommend turning wedge for repositioning as tolerated. Will confirm orders with hospitalist and update nurse. Updated care plan and will follow as needed.
Note to case management of equipment requested for discharge:
Recommend follow up at wound care center upon discharge.
--- NOTE | 2024-11-09 11:07 | WOUNDNOTE ---
LEFT BUTTOCK and POSTERIOR THIGH
--- NOTE | 2024-11-09 11:07 | WOUNDNOTE ---
SACRUM and LEFT BUTTOCK
--- NOTE | 2024-11-09 11:09 | WOUNDNOTE ---
RIGHT LATERAL HEEL STAGE @
--- NOTE | 2024-11-09 11:10 | WOUNDNOTE ---
RIGHT LATERAL HEEL
--- NOTE | 2024-11-09 11:12 | CM ---
CM consult for montaño check for Eliquis 5mg PO BID. Per [facility] Pharmacist, cost will be $522.00/month.
[2024-11-09 12:08] LABS: Osmolality Urine 624 mOsm/kg (300-900)
[2024-11-09] MEDS: 0.45%NACL IV (12:14)
[2024-11-09 12:20] LABS: Glucose - Point of Care 144 mg/dl (70-99)
[2024-11-09 12:28] LABS: Urine Sodium 28 mmol/L (30-90)
--- NOTE | 2024-11-09 12:40 | CM ---
Reviewed the chart notes and spoke with the patient at the bedside. CM consult received to montaño Eliquis 5mg PO BID. Per [facility] Pharmacist, the cost for Eliquis would be $522/month. Patient informed. The patient resides alone in a one floor mobile
home with two steps to enter. The patient reports only DME in home is a cane. The patient reports no VN or SNF in the past. The patient confirmed his pharmacy of choice is [facility]. Patient on RA. CM continues to be available
to patient/family and is monitoring medical plan for needs at discharge.
Plan: Discharge plans will depend on the patient's progress.
[2024-11-09] MEDS: LIDOCAINE 4% PATCH 1 PATCH TOPICAL (15:44)
[2024-11-09] MEDS: LIPITOR 10 MG PO (17:50)
[2024-11-09 17:52] LABS: Glucose - Point of Care 148 mg/dl (70-99)
[2024-11-09] MEDS: PACERONE 400 MG PO (20:38)
[2024-11-09] MEDS: FLOMAX 0.4 MG PO (20:39)
[2024-11-09] MEDS: SENOKOT-S 1 TABLET PO (20:53)
[2024-11-09 22:11] LABS: Glucose - Point of Care 170 mg/dl (70-99)
[2024-11-10] VITALS (23 sets, daily range): BP systolic 107–169; BP diastolic 70–108; BMI 31.5
--- NOTE | 2024-11-10 00:17 | PTCARENOTE ---
Pt reports absence of flatus and states he 'feels bloated'. Abdomen mildly distended, no bm since admission, pt unable to recall last bm. Bowel sounds active in all quadrants. PRN senokot given. Call mata and belongings within reach. Pt aaox3, able
to make needs known. Care ongoing.
[2024-11-10] MEDS: 0.45%NACL 1000 IV ×2 (02:24→15:03)
[2024-11-10 05:50] LABS: Hematocrit 33.1 % (39.0-52.0); Hemoglobin 10.8 g/dL (13.0-18.0); Mean Corp Hgb Conc. 32.6 g/dL (33.0-37.0); Mean Corpuscular Hgb 30.3 pg (27.0-31.0); Mean Corpuscular Volume 92.7 fL (80.0-94.0); Mean Platelet Volume 9.5 fL (7.4-10.4); Platelet Count 219 10^3/uL (130-400); Red Blood Cell Count 3.57 10^6/uL (4.70-6.10); Red Cell Dist. Width 13.4 % (11.5-14.5); White Blood Cell Count 9.7 10^3/uL (4.8-10.8)
[2024-11-10 06:17] LABS: ALT (SGPT) 17 U/L (0-50); AST (SGOT) 26 U/L (17-59); Albumin 3.3 g/dl (3.5-5.0); Alkaline Phosphatase 99 U/L (38-126); Blood Urea Nitrogen 81 mg/dl (9-20); Calcium 8.8 mg/dl (8.4-10.2); Carbon Dioxide 18 mmol/L (22-30); Chloride 111 mmol/L (98-107); Estimated Creatinine Clearance 45 ml/min; Glucose 157 mg/dl (70-99); Magnesium 2.2 mg/dl (1.6-2.3); Phosphorus 3.8 mg/dl (2.5-4.5); Potassium 4.1 mmol/L (3.5-5.1); Sodium 142 mmol/L (135-145); Total Bilirubin 0.6 mg/dl (0.2-1.3); Total Protein 6.2 g/dl (6.3-8.2); eGFR 34.16
[2024-11-10] MEDS: LIDOCAINE 4% PATCH 1 PATCH TOPICAL (08:15)
[2024-11-10] MEDS: ELIQUIS 5 MG PO ×2 (08:15→20:04)
[2024-11-10] MEDS: PACERONE 400 MG PO ×2 (08:15→20:04)
[2024-11-10] MEDS: FOLTX 1 TABLET PO (08:15)
[2024-11-10 08:29] LABS: Glucose - Point of Care 142 mg/dl (70-99)
--- NOTE | 2024-11-10 08:35 | W.PN.HOSP.TC ---
Addendum entered and electronically signed by Ayo Demarco MD 11/10/24 16:23:
NAD
Scleral Anicteric
MMM
No JVD
CTABL
RRR, S1/S2
Soft, NT, ND, BS+
Warm, Dry
AAOx3
Calm
Fall, sounds mechanical
-PT/OT
Atrial flutter
-Started on IV Amio, transition to oral amnio 400 mg twice a day for 2 weeks then 200 mg daily
-S/p cardioversion
-Tele
-2d echo EF 60 to 65%
MRAC on CKD stage 3a/3b
Likely related to dehydration
-RBUS demonstrating prostamegaly
-IVF
-Avoid nephrotoxins and hypotension
HTN
-Antihypertensive held for lower BP
-Once BP improved can resume slowly
TypeII DM
-On metformin (held)
-Accucheck, SSI, Bg 140-180, CCdiet
B12 Def
-Provide supplementation
BPH
Continue Flomax
Original Note:
Today's Communication/Plan
-
PO amio
PT/OT
Discuss cost of eliquis
Assessment / Plan
Assessment / Plan
74-year-old male with past medical history of hypertension, hyperlipidemia, type 2 diabetes, prostate cancer status post radiation therapy 2023, gout presented to the ED after falling on Wednesday and night and down for 5 days. He was found down by
his niece. Reportedly he was covered in urine and feces when he came in. The day to fall, he felt unsteady on his feet but were enough to put his coffee on the counter before he fell. He denies any loss of consciousness. He did have significant
bilateral lower extremity edema and erythema that got better by Wednesday with no p.o. intake. In the ED, initial vitals were stable, however around 12:30, patient went into a flutter with heart rates in the 150s to 160s and became hypotensive.
Fluid bolus was ordered, but not given as patient's blood pressure increased. Cardiology consulted. He was admitted to IMU and started on amio drip.
#Atrial flutter
-Heart rates in 150s to 160s in ED, EKG flutter
� Admitted to IMU
� Keep K greater than 4, mag greater than 2
� Denies any history of A-fib/flutter, denies any heart palpitations, shortness of breath, not on any rate controlling agents not on anticoagulation
� Cardiology consulted
- Started on amnio drip dc 11/09
� [id number] score 4, started on Eliquis per cardiology
� TSH within normal limits
� Echo LVEF 60-65%
�Cardioversion successful now in sinus rythm
-PO amio 400mg bid x 2 weeks (to end 11/23), then 200mg daily for next 3 months
-Follow up with cardiology outpatient
#Hypotension
-resolved
#Metabolic acidosis
-Encourage PO intake
#Ambulatory dysfunction/fall
#Dehydration after 5 days of no food and water
� CK 295 on admission, increased to 393, now downtrending
� PT OT
� Cause of fall unclear
-Mag and Phos currently within normal limits
-Recommend SNF
#Bilateral lower extremity swelling and erythema
-Had a scheduled cardiology appointment with Dr. Roslyn stoner for evaluation of bilateral lower extremity swelling
� LVEF 60-65% therefore likely not due to cardiac etiology
-Compression stockings
#Ab distension
-Cannot remember last bowel movement
-Laxative
#Leukocytosis
-Resolved
#Stage II sacral wounds
-Wound care
#Stage 2 right heel Pressure injury and DTI left heel pressure injury POA
-Wound care following
#MARC
� Creatinine 2.1, baseline appears around 1.6
- FeNa 0.3 pre-renal cont to encourage PO intake of fluids
� Likely secondary to severe dehydration
� Avoid nephrotoxic agents
#Hypernatremia
� Resolved with fluids
#B12 deficiency
� Started on vitamin B complex supplementation
Hypertension
� Takes amlodipine and hydrochlorothiazide at home
� On hold due to hypotension
� Restart as able
#Type 2 diabetes mellitus
� Hemoglobin A1c pending
� Metformin on hold due to MARC
-SSI
#History of prostate cancer status post radiation therapy December 2023
#Enlarged prostate
� Continue tamsulosin
Full code
DVT heparin
diabetic diet after cardioversion
[id number]'s name is Sandi. She is going to get him a life alert. of 51 years in August, and since then he has had a hard time taking care of himself. Recommend further exploration of patient's mental health and consider
starting antidepressant after discussing with patient.
Anticipated Discharge: 24 - 48 hours
Subjective/Interval History
-
Date of Service: November 10, 2024
Objective Data
-
Labs:
Laboratory Results
11/10/24
04:49
WBC 9.7
Hgb 10.8 L
Hct 33.1 L
Plt Count 219
Sodium 142
Potassium 4.1
Chloride 111 H
Carbon Dioxide 18 L
BUN 81 H
Creatinine 2.0 H
Glucose 157 H
Calcium 8.8
Total Bilirubin 0.6
AST 26
ALT 17
Alkaline Phosphatase 99
Vital Signs:
Vital Signs
Temp Pulse Resp BP Pulse Ox
98.3 F 89 22 120/77 95
11/10/24 05:20 11/10/24 08:15 11/10/24 07:00 11/10/24 08:15 11/10/24 07:00
I&O
11/09/24 11/10/24 11/11/24
06:59 06:59 06:59
Intake Total 480 / 480 480 / 480
Output Total 575 / 575 150 / 150 200 / 200
Balance -575 / -575 330 / 330 280 / 280
Review of Systems
-
History Source: Patient
Respiratory: Reports No Symptoms
Cardiac: Reports No Symptoms
Abdomen/GI: Reports Constipated (Pt feels 'gassy' )
Skin: Reports No Symptoms
Neuro: Reports Weakness
Physical Exam
-
General: No Apparent Distress and Comfortable
HEENT: Normocephalic
Respiratory: Clear to Auscultation
Cardiac: Regular Rhythm and S1/S2
GI: Soft, Normal Bowel Sounds, Tender ('discomfort' but not tenderness with palpation. ) and Distended
Musculoskeletal: Edema, Right Lower Extrem and Edema, Left Lower Extrem
Skin: Warm and Dry
Neuro: AO x 3
Psych: Calm
[2024-11-10 08:49] LABS: Creatine Phosphokinase 127 U/L (55-170)
--- NOTE | 2024-11-10 09:18 | W.PN.CD ---
Addendum entered and electronically signed by CYNDY Gonzalez 11/10/24 15:32:
Apixaban is unaffordable. Will use 1 month free card for now then transition to warfarin or dabigatran ($225 for 3 months from [facility]) in the outpatient setting.
Original Note:
Today's Communication / Plan
-
Continue amiodarone 400mg bid x 2 weeks (to end 11/23), then 200mg daily
Eliquis 5mg BID
f/u Dr Haque 11/15, 11am, [facility]
Cardiology will sign off at this time. Please call with any additional questions or concerns.
Impression / Plan
-
Atrial flutter: new diagnosis, seems typical, with elevated rates
-s/p DCCV on 11/09/24
-continue PO amiodarone 400mg bid x 2 weeks (to end 11/23), then 200mg daily
-[id number] score is 4 for age, HTN, DM. Occasional, but not frequent falls. Eliquis 5mg bid.
HTN:
-monitor
-on CCB/ACEI/diuretic as OP: currently held for low BP
-would hold on discharge and resume as tolerated
CKD3b
-trend Cr
Dispo
-f/u Dr Haque 11/15, 11am, [facility]
Physical Exam
Vital Signs/Labs
Vital Signs
Temp Pulse Resp BP Pulse Ox
98.4 F 89 22 120/77 95
11/10/24 07:55 11/10/24 08:15 11/10/24 07:00 11/10/24 08:15 11/10/24 07:00
11/09/24 11/10/24 11/11/24
06:59 06:59 06:59
Actual Weight 118.8 kg 117.4 kg
11/10/24 04:49
11/10/24 04:49
Magnesium 2.2 mg/dl (1.6-2.3) 11/10/24 04:49
Triglycerides 93 mg/dl (10-149) 11/09/24 04:13
LDL Cholesterol, Calc 66 mg/dl 11/09/24 04:13
VLDL Cholesterol, Calc 18 mg/dl (0-30) 11/09/24 04:13
HDL Cholesterol 48 mg/dl 11/09/24 04:13
TSH 1.78 uIU/ml (0.47-4.68) 11/09/24 04:13
Physical Exam
Constitutional: No acute distress and Comfortable
Cardiovascular: Rhythm & rate is regular and Pedal edema present
Respiratory: Respiratory effort normal and Crackles Present
Neuro/Psych: AO x 3
Data Reviewed
-
Date of Service: November 10, 2024
Medical Decision Making: Reviewed Test Results, Independent Historian Assessment, Test Interpretation and Review of Case with other Provider
EKG: Tracing Personally Visualized and interpreted
Echo: Report Reviewed by me
X-Ray/CT/US/MRI/NUC/PET: Image Personally Visualized and interpreted
Labs: Labs Reviewed by me
[2024-11-10] MEDS: DULCOLAX 5 MG PO (10:20)
--- NOTE | 2024-11-10 10:44 | PN.CDI ---
CDI
- -
CDI:
Physician Documentation Request
Admit Date: 11/08/24 13:11
Dear Doctor Cristofer,
Please review the following and provide your response in the progress notes.
Clinical Indicators:
Pt admitted with mechanical fall, MARC on CKD3b, and Aflutter.
11/09 WO RN note in skin assessment panel noted stage 2 right heel pressure injury and left heel DTI pressure injury - along with the sacral PI.
Physician documentation of the type and location of wounds is required for compliant documentation. Based on the above clinical findings and your assessment, please provide the following in your progress note:
Location of the ulcer/wound, including laterality.
Type (etiology) of ulcer/wound:
Stage 2 right heel Pressure injury and DTI left heel pressure injury POA
Non-pressure injuries of the right and left heels
Other
Use of terms such as suspected, likely, concern for, or probable (associated with a specific diagnosis that is being evaluated, monitored, or treated as if it exists) are acceptable and can be coded in the inpatient setting, when documented at the
time of discharge.
Thank you,
Kaylyn Norris RN, BSN
CDI Specialist
[place] [facility]
Please use your independent medical judgment in providing your response.
*Source: National Pressure Ulcer Advisory Panel (NPUAP)
[2024-11-10] MEDS: NOVOLOG FLEXPEN-LOW RESISTANCE SC ×2 (12:30→16:57)
[2024-11-10 13:05] LABS: Glucose - Point of Care 186 mg/dl (70-99)
--- NOTE | 2024-11-10 15:31 | CM ---
Addendum entered by Divya Jacques RN 11/10/24 16:12:
Sethi check Xarelto and Pradaxa (dabigatran):
Spoke with pharmacist [facility];
Cost for Xarelto and Pradaxa is $521/month.
[facility] does not carry dabigatran.
Information relayed to Dr Flores.
Original Note:
Patient with Hx fall at home & on floor x 5 days with Dx Aflutter cardioverted to SR, hypotension- resolved, ambulatory dysfunction/fall, Dehydration, Bilateral lower extremity swelling and erythema, sacral & heel wounds. Room air. Receiving
Amiodarone, Eliquis, Lidocaine Patch, IVF. PT/OT; requires assist of 2, recommend skilled rehab.
Message to Janet Lopez & Resident Meeta Cleveland; patient told CM yesterday he cannot afford the $522/month for Eliquis (he is only eligible for 1 free month).
Met with patient and discussed short term SNF for rehab; he is agreeable to any SNF near [place] with a good rating. Reviewed local SNFs and provided [facility] ratings. Agreed to make referrals and will let patient know if any choices of
facilities. Patient confirms he has lived alone since his and he has no children.
Spoke with Gela, patient's niece; patient's Aug 24 2024 and patient has been depressed ever since. Gela is aware CM is making SNF referrals - she mentions no preference. She or her step-mom check on him twice a week at home,
however Gela lives 1 hour away from the patient. Gela is having surgery 11/28 so her step-mom will be assisting him as needed when he returns home.
Message sent to [facility] requesting they meet with the patient---> message received.
10 SNF referrals placed. Spoke with [facility] and [facility] Norris; no beds at present. Calls made to [facility].
Plan follow up SNF referrals.
--- NOTE | 2024-11-10 16:03 | PTCARENOTE ---
Patient AOx3. Patient has flat affect. Patient on RA. NSR with PAC's and BBB on monitor. L leg has +2 edema and R leg has +1 edema. Weak pedal pulses. Patient utilizes urinal. Patient had large soft BM during shift. IVF running per order. Call mata
within reach, bed in lowest position, and bed of wheels locked.
[2024-11-10] MEDS: LIPITOR 10 MG PO (17:02)
[2024-11-10 17:07] LABS: Glucose - Point of Care 121 mg/dl (70-99)
[2024-11-10] MEDS: FLOMAX 0.4 MG PO (20:04)
[2024-11-10 21:25] LABS: Glucose - Point of Care 152 mg/dl (70-99)
[2024-11-11] VITALS (17 sets, daily range): BP systolic 123–178; BP diastolic 75–121; PULSE 79; O2SAT 92; BMI 31.5
--- NOTE | 2024-11-11 02:16 | PTCARENOTE ---
Pt flipped back into aflutter briefly (6 seconds) around 01:30. Pt awake/alert. Asymptomatic. Back in NSR with occasional PACs. Tele strip in chart.
[2024-11-11 04:08] LABS: Glucose - Point of Care 123 mg/dl (70-99)
[2024-11-11] MEDS: 0.45%NACL 1000 IV (04:37)
[2024-11-11 04:48] LABS: Hematocrit 31.8 % (39.0-52.0); Hemoglobin 10.7 g/dL (13.0-18.0); Mean Corp Hgb Conc. 33.6 g/dL (33.0-37.0); Mean Corpuscular Hgb 30.8 pg (27.0-31.0); Mean Corpuscular Volume 91.6 fL (80.0-94.0); Platelet Count 200 10^3/uL (130-400); Red Blood Cell Count 3.47 10^6/uL (4.70-6.10); Red Cell Dist. Width 13.3 % (11.5-14.5); White Blood Cell Count 8.8 10^3/uL (4.8-10.8)
[2024-11-11 05:13] LABS: ALT (SGPT) 18 U/L (0-50); AST (SGOT) 24 U/L (17-59); Albumin 2.9 g/dl (3.5-5.0); Alkaline Phosphatase 95 U/L (38-126); Blood Urea Nitrogen 64 mg/dl (9-20); Calcium 8.6 mg/dl (8.4-10.2); Carbon Dioxide 20 mmol/L (22-30); Chloride 111 mmol/L (98-107); Creatine Phosphokinase 67 U/L (55-170); Estimated Creatinine Clearance 50 ml/min; Glucose 142 mg/dl (70-99); Magnesium 2.1 mg/dl (1.6-2.3); Potassium 3.8 mmol/L (3.5-5.1); Sodium 139 mmol/L (135-145); Total Bilirubin 0.6 mg/dl (0.2-1.3); Total Protein 5.9 g/dl (6.3-8.2); eGFR 38.77
[2024-11-11 07:32] LABS: Glucose - Point of Care 145 mg/dl (70-99)
[2024-11-11] MEDS: NOVOLOG FLEXPEN-LOW RESISTANCE SC ×2 (08:15→17:57)
[2024-11-11] MEDS: LIDOCAINE 4% PATCH 1 PATCH TOPICAL (09:17)
[2024-11-11] MEDS: ELIQUIS 5 MG PO ×2 (09:17→20:49)
[2024-11-11] MEDS: FOLTX 1 TABLET PO (09:17)
[2024-11-11] MEDS: PACERONE 400 MG PO ×2 (09:17→20:50)
--- NOTE | 2024-11-11 09:23 | PTCARENOTE ---
Patient received from date night sitter. Patient resting comfortably in bed. AAO, VSS. No events noted overnight. Complaints of pain on the right flank from fall, lidocaine patch to be applied. Patient is on room air. Currently receiving 1/2 NSS @
75mL/hr. Amio gtt still off. No further testing today. Possible downgrade. Call mata in reach.
--- NOTE | 2024-11-11 09:28 | W.PN.HOSP.TC ---
Today's Communication/Plan
-
Pending SNF
Assessment / Plan
Assessment / Plan
NAD
Scleral Anicteric
MMM
No JVD
CTABL
RRR, S1/S2
Soft, NT, ND, BS+
Warm, Dry
AAOx3
Calm
Fall, sounds mechanical
-PT/OT rec SNF
Atrial flutter
-Started on IV Amio, transition to oral amnio 400 mg twice a day for 2 weeks then 200 mg daily
-S/p cardioversion
-Tele
-2d echo EF 60 to 65%
-Elquis, per Cardiology 'Will use 1 month free card for now then transition to warfarin or dabigatran ($225 for 3 months from [facility]) in the outpatient setting.'
MARC on CKD stage 3a/3b, improving on 1/2NS
Likely related to dehydration
-RBUS demonstrating prostamegaly
-IVF
-Avoid nephrotoxins and hypotension
Metabolic acidosis, improving
-Releated to ckd [id number]
-Per kdigo guideline - start bicarb therapy for goal hco3 of 22-26, improved morrbidity/,ortality, as this can slow ckd
-NaHCO3 to start 650mg BID
HTN
-Antihypertensive held for lower BP
-Once BP improved can resume slowly
TypeII DM
-On metformin (held)
-Accucheck, SSI, Bg 140-180, CCdiet
B12 Def
-Provide supplementation
BPH
Continue Flomax
Stage 2 right heel pressure injury and left heel DTI pressure injury along with the sacral PI
Wound care
Anticipated Discharge: > 48 hours
Subjective/Interval History
-
Date of Service: November 11, 2024
Seen and examined. No new complaints. No acute overnight events.
Resting comfortably in bed
Agreeable to initiate Lovenox Coumadin bridge due to financial reasons unable to continue on Eliquis
Objective Data
-
Labs:
Laboratory Results
11/11/24
04:32
WBC 8.8
Hgb 10.7 L
Hct 31.8 L
Plt Count 200
Sodium 139
Potassium 3.8
Chloride 111 H
Carbon Dioxide 20 L
BUN 64 H
Creatinine 1.8 H
Glucose 142 H
Calcium 8.6
Total Bilirubin 0.6
AST 24
ALT 18
Alkaline Phosphatase 95
Vital Signs:
Vital Signs
Temp Pulse Resp BP Pulse Ox
97.9 F 79 27 131/90 96
11/11/24 07:27 11/11/24 09:17 11/11/24 06:00 11/11/24 09:17 11/11/24 08:21
I&O
11/10/24 11/11/24 11/12/24
06:59 06:59 06:59
Intake Total 480 / 480 3720 / 3720
Output Total 150 / 150 1550 / 1550
Balance 330 / 330 2170 / 2170
[2024-11-11 12:18] LABS: Glucose - Point of Care 242 mg/dl (70-99)
[2024-11-11] MEDS: NOVOLOG FLEXPEN-LOW RESISTANCE 2 UNITS SC (12:51)
--- NOTE | 2024-11-11 15:50 | PTCARENOTE ---
Attempted to call report, nurse unavailable. 3W nurse to call back when ready.
[2024-11-11 17:54] LABS: Glucose - Point of Care 116 mg/dl (70-99)
[2024-11-11] MEDS: LIPITOR 10 MG PO (17:56)
--- NOTE | 2024-11-11 18:21 | PTCARENOTE ---
Report called to Amarilis WISE 3W.
--- NOTE | 2024-11-11 18:30 | PTCARENOTE ---
patient arrived to room via sport bed. denies complaints or pain, NSR on patient monitor, vss, oriented to new room and use of call mata, will continue to monitor.
[2024-11-11] MEDS: SODIUM BICARBONATE 650 MG PO (20:49)
[2024-11-11] MEDS: FLOMAX 0.4 MG PO (20:52)
[2024-11-11 22:26] LABS: Glucose - Point of Care 143 mg/dl (70-99)
[2024-11-12] VITALS (7 sets, daily range): BP systolic 118–142; BP diastolic 65–82; BMI 32.0
[2024-11-12] MEDS: PACERONE 400 MG PO ×2 (09:32→19:38)
[2024-11-12] MEDS: ELIQUIS 5 MG PO ×2 (09:33→19:38)
[2024-11-12] MEDS: SODIUM BICARBONATE 650 MG PO ×2 (09:33→19:38)
[2024-11-12] MEDS: FOLTX 1 TABLET PO (09:34)
[2024-11-12] MEDS: LIDOCAINE 4% PATCH 1 PATCH TOPICAL (09:34)
[2024-11-12 09:35] LABS: Glucose - Point of Care 141 mg/dl (70-99)
[2024-11-12] MEDS: NOVOLOG FLEXPEN-LOW RESISTANCE SC ×3 (09:35→17:45)
--- NOTE | 2024-11-12 12:08 | W.PN.HOSP.TC ---
Today's Communication/Plan
-
Awaiting SNF
Assessment / Plan
Assessment / Plan
NAD
Scleral Anicteric
MMM
No JVD
CTABL
RRR, S1/S2
Soft, NT, ND, BS+
Warm, Dry
AAOx3
Calm
Fall, sounds mechanical
-PT/OT rec SNF
Atrial flutter
-Started on IV Amio, transition to oral amnio 400 mg twice a day for 2 weeks then 200 mg daily
-S/p cardioversion
-Tele
-2d echo EF 60 to 65%
-Elquis, per Cardiology 'Will use 1 month free card for now then transition to warfarin or dabigatran ($225 for 3 months from [facility]) in the outpatient setting.'
MARC on CKD stage 3a/3b, improving on 1/2NS
Likely related to dehydration
-RBUS demonstrating prostamegaly
-IVF
-Avoid nephrotoxins and hypotension
Metabolic acidosis, improving
-Releated to ckd [id number]
-Per kdigo guideline - start bicarb therapy for goal hco3 of 22-26, improved morrbidity/,ortality, as this can slow ckd
-NaHCO3 to start 650mg BID
HTN
-Antihypertensive held for lower BP
-Once BP improved can resume slowly
TypeII DM
-On metformin (held)
-Accucheck, SSI, Bg 140-180, CCdiet
B12 Def
-Provide supplementation
BPH
Continue Flomax
Stage 2 right heel pressure injury and left heel DTI pressure injury along with the sacral PI
Wound care
Anticipated Discharge: 24 - 48 hours
Subjective/Interval History
-
Date of Service: November 12, 2024
Seen and examined. No new complaints. No acute overnight events.
Telemetry reviewed remains in sinus rhythm in the 70s
Objective Data
-
Vital Signs:
Vital Signs
Temp Pulse Resp BP Pulse Ox
97.6 F 76 16 123/73 98
11/12/24 07:00 11/12/24 07:00 11/12/24 07:00 11/12/24 07:00 11/12/24 07:00
I&O
11/11/24 11/12/24 11/13/24
06:59 06:59 06:59
Intake Total 3720 / 3720
Output Total 1550 / 1550 1225 / 1225
Balance 2170 / 2170 -1225 / -1225
--- NOTE | 2024-11-12 12:08 | CHAP ---
Lucio was awake and alert - struggling with a lot of questions about how to manage going forward. Emotional and spiritual support provided. Update given via TT to KERRIE Morris.
[2024-11-12 12:42] LABS: Glucose - Point of Care 160 mg/dl (70-99)
--- NOTE | 2024-11-12 14:29 | PTCARENOTE ---
Patient able to sit at side of bed and void in urinal. Patient was unable to stand at the bedside and needed assist x2. Patient is turning self in bed.
[2024-11-12 16:43] LABS: Glucose - Point of Care 123 mg/dl (70-99)
[2024-11-12] MEDS: LIPITOR 10 MG PO (17:46)
[2024-11-12 21:17] LABS: Glucose - Point of Care 161 mg/dl (70-99)
[2024-11-12] MEDS: FLOMAX 0.4 MG PO (21:31)
[2024-11-13 03:00] VITALS: BP 144/90
[2024-11-13 06:00] VITALS: BMI 32.1
[2024-11-13 07:05] VITALS: BP 148/76
[2024-11-13 07:12] LABS: Hematocrit 32.2 % (39.0-52.0); Mean Corp Hgb Conc. 34.2 g/dL (33.0-37.0); Mean Corpuscular Hgb 30.6 pg (27.0-31.0); Mean Corpuscular Volume 89.7 fL (80.0-94.0); Mean Platelet Volume 9.5 fL (7.4-10.4); Platelet Count 238 10^3/uL (130-400); Red Blood Cell Count 3.59 10^6/uL (4.70-6.10); Red Cell Dist. Width 13.1 % (11.5-14.5); White Blood Cell Count 10.2 10^3/uL (4.8-10.8)
[2024-11-13 07:31] LABS: Glucose - Point of Care 126 mg/dl (70-99)
[2024-11-13 07:32] LABS: Blood Urea Nitrogen 40 mg/dl (9-20); Calcium 8.6 mg/dl (8.4-10.2); Carbon Dioxide 23 mmol/L (22-30); Chloride 107 mmol/L (98-107); Estimated Creatinine Clearance 60 ml/min; Glucose 128 mg/dl (70-99); Sodium 138 mmol/L (135-145); eGFR 48.25
[2024-11-13] MEDS: NOVOLOG FLEXPEN-LOW RESISTANCE SC (08:39)
[2024-11-13] MEDS: LIDOCAINE 4% PATCH 1 PATCH TOPICAL (08:40)
[2024-11-13] MEDS: ELIQUIS 5 MG PO (08:41)
[2024-11-13] MEDS: PACERONE 400 MG PO (08:41)
[2024-11-13] MEDS: SODIUM BICARBONATE 650 MG PO (08:41)
[2024-11-13] MEDS: FOLTX 1 TABLET PO (09:02)
--- NOTE | 2024-11-13 09:30 | W.PN.HOSP.TC ---
Today's Communication/Plan
-
Discharge to SNF today
Resume home BP and diabetic meds at discharge
Continue amiodarone 400 mg twice a week, then 200 mg daily in the outpatient setting
Continue Eliquis outpatient
Assessment / Plan
Assessment / Plan
#Fall, sounds mechanical
-PT/OT
-discharge to SNF today
#Atrial flutter
-Started on IV Amio, transition to oral amnio 400 mg twice a day for 2 weeks then 200 mg daily
-S/p cardioversion in sinus rythm
-Tele
-2d echo EF 60 to 65%
-Eliquis, per Cardiology 'Will use 1 month free card for now then transition to warfarin or dabigatran ($225 for 3 months from [facility]) in the outpatient setting.'
-Follow-up with cardiology after discharge
#MARC on CKD stage 3a/3b, improving on 1/2NS
-Likely related to dehydration
-RBUS demonstrating prostamegaly
-IVF
-Avoid nephrotoxins and hypotension
#Metabolic acidosis, improving
-Related to ckd [id number]
-Per kdigo guideline - start bicarb therapy for goal hco3 of 22-26, improved morbidity/,mortality, as this can slow ckd
-NaHCO3 to start 650mg BID
#HTN
-Anti-hypertensive held for lower BP
-Once BP improved can resume slowly
-Discharge on
#TypeII DM
-On metformin (held)
-Accucheck, SSI, Bg 140-180, CCdiet
-Restart metformin at discharge
#B12 Def
-Provide supplementation
#BPH
Continue Flomax
#Stage 2 right heel pressure injury and left heel DTI pressure injury along with the sacral PI
Wound care
Full code
DVT Eliquis
Anticipated Discharge: Today
Subjective/Interval History
-
Date of Service: November 13, 2024
Objective Data
-
Labs:
Laboratory Results
11/13/24
06:18
WBC 10.2
Hgb 11.0 L
Hct 32.2 L
Plt Count 238
Sodium 138
Potassium 4.0
Chloride 107
Carbon Dioxide 23
BUN 40 H
Creatinine 1.5 H
Glucose 128 H
Calcium 8.6
Vital Signs:
Vital Signs
Temp Pulse Resp BP Pulse Ox
98.1 F 78 19 148/76 96
11/13/24 07:05 11/13/24 07:05 11/13/24 07:05 11/13/24 07:05 11/13/24 07:05
I&O
11/12/24 11/13/24 11/14/24
06:59 06:59 06:59
Intake Total 960 / 960 960 / 960
Output Total 1225 / 1225 1000 / 1000 400 / 400
Balance -1225 / -1225 -40 / -40 560 / 560
Review of Systems
-
History Source: Patient
EENT: Reports No Symptoms Reported
Respiratory: Reports No Symptoms
Cardiac: Reports No Symptoms
Abdomen/GI: Reports No Symptoms
Skin: Reports No Symptoms
Neuro: Reports No Symptoms
Physical Exam
-
General: Well Developed and No Apparent Distress
HEENT: Normocephalic
Respiratory: Clear to Auscultation
Cardiac: Regular Rhythm and S1/S2
GI: Soft, Nontender, Distended and Other (Hypertympanic bowel sounds)
Musculoskeletal: Edema, Right Lower Extrem and Edema, Left Lower Extrem
Skin: Warm and Dry
Neuro: AO x 3
--- NOTE | 2024-11-13 09:45 | CM ---
Addendum entered by Deysi Reinoso 11/13/24 10:07:
tt hospitalist
IMM placed in chart
Original Note:
Spoke with Lucrecia [phone] at [facility]
Bed available today
spoke with diamante Roque agreeable
PLAN: [facility]
Report # [phone]
Fax #: [phone]
transportation forms on chart
[2024-11-13 11:05] VITALS: BP 139/69
[2024-11-13 11:39] LABS: Glucose - Point of Care 206 mg/dl (70-99)
--- NOTE | 2024-11-13 12:20 | PTCARENOTE ---
Patient tolerating 100% of meals. Patient able to turn self in bed, needs assistance with boosting higher in bed. Fiber filled boots on, call mata in reach.
[2024-11-13] MEDS: NOVOLOG FLEXPEN-LOW RESISTANCE 2 UNITS SC (13:20)
--- NOTE | 2024-11-13 14:39 | W.PN.UPDATE ---
Update Note
Progress Note Update
I saw and evaluated the patient. I reviewed the resident�s note and agree with findings and plan as documented in the resident�s note.
Mechanical fall
- discharge to snf rehab
Atrial flutter
s/p successful cardioversion
-Started on IV Amio, transition to oral amnio 400 mg twice a day for 2 weeks then 200 mg daily
-2d echo EF 60 to 65%
-Elquis, per Cardiology 'Will use 1 month free card for now then transition to warfarin or dabigatran ($225 for 3 months from [facility]) in the outpatient setting.'
MARC on CKD stage 3a/3b, improving on 1/2NS
Likely related to dehydration
-MARC improved
Metabolic acidosis
-given bicarb bicarb therapy in hospital
HTN
-resume home medications
TypeII DM
-On metformin (held)
-Accucheck, SSI, Bg 140-180, CCdiet
B12 Def
-Provide supplementation
BPH
Continue Flomax
Stage 2 right heel pressure injury and left heel DTI pressure injury along with the sacral PI
Wound care
More than 30 minutes spent in discharge including
Final examination of the patient
Summarizing hospital stay
Instructions for continuing care to all relevant caregivers
Preparation of discharge records, prescriptions, and referral forms
Total time spent (in minutes): 39 mins
[2024-11-13 15:05] VITALS: BP 130/71
--- NOTE | 2024-11-13 15:42 | W.DCSUMMARY ---
Discharge Summary
Discharge Data
Date of Admission: 11/08/24
Date of Discharge: 11/13/24
-
Pending Results: No
Hospital Course
Primary diagnosis:
Fall
Ambulatory dysfunction
Atrial flutter
Hypotension
MARC
Metabolic acidosis
Stage II heel pressure injury
Stage II sacral wounds
Hypernatremia
B vitamin B12 deficiency
Secondary diagnoses:
Hypertension
Type 2 diabetes
History of prostate cancer s/p radiation therapy
Hospital course:
74-year-old male with past medical history of hypertension, hyperlipidemia, type 2 diabetes, prostate cancer status post radiation therapy 01/03/2024 and gout presented to the ER via EMS after falling on Wednesday and unable to get himself up off the
ground since then (5 days on ground). He was found by his niece who contacted EMS. In the ED, patient arrived in sinus tachycardia with multiple PVC's and later developed into atrial flutter. His blood pressure also started to drop. Cardiology
was consulted and patient was placed on amio drip for new onset atrial flutter. He was also noted to have an MARC cr 2.1, elevated CK 295 and WBC 15.8. Patient was started on fluids and admitted to IMU. The next day, patient underwent cardioversion
and successfully converted back to sinus rhythm. He was started on anticoagulation. His lab values continued to improved and physical therapy worked with the patient to get stronger.
Today, patient is clinically stable for discharge to SNF. Recommend outpatient follow-up with cardiology. He has been discharged with 400 mg twice daily amiodarone until 11/23, then transition to 200 mg daily. He has also been started on Eliquis 5
mg twice daily. Restart his home blood pressure medication and metformin.
Discharge Plan
-
Patient Disposition: Prison/SNF
Discharge Diagnosis/Procedures: Atrial flutter, Mechanical fall, Pre-diabetic
Condition: Fair
Diet: Diabetic, Carb Controlled
Activity: As tolerated
Driving Restrictions: No driving
Bathing Restrictions: OK to Shower
Other Services: PT
Activity Restrictions/Additional Instructions:
Wound Care Instructions Sacrum/generalize buttocks- Clean with saline or soap and water. Apply Hydrogel to necrotic areas and cover with silicone border foam. Change daily and PRN drainage.
Bilateral Heels - No sting barrier wipe, cover with adhesive foam. Change Q 3 days and PRN. Contact your doctor if left heel wound opens.
Turning schedule
Air mattress
Keep heels off-loaded with fiber filled boots
Follow up at wound care center call for an appointment.
Referrals:
José Miguel Haque MD [Active] - 11/15/24 11:00 am (please note [facility]t [facility] [place])
Corie Rogers PA-C [Family Provider] - in one week
Additional Discharge Medication Instructions: Take Amiodarone 2 tablets twice daily until 11/23, then take 1 tablet daily for maintenance
Prescriptions:
New
Eliquis 5 mg Tablet
5 mg PO BID Qty: 60 0RF
amiodarone 200 mg Tablet
See Rx Instructions .ROUTE .COMPLEX Qty: 90 0RF
Rx Instructions:
Take 2 tablets twice daily for 2 weeks THEN
Take 1 tablet daily for maintenance
Continued
atorvastatin 10 mg Tablet
10 mg PO QPM
hydrochlorothiazide 50 mg Tablet
50 mg PO DAILY
tamsulosin 0.4 mg Capsule
0.4 mg PO HS
clotrimazole-betamethasone 1-0.05 % Cream
1 applic TOPICAL DAILYPRN PRN (Reason: whole body rash)
amlodipine-benazepril 10-40 mg Capsule
1 cap PO DAILY
Anbesol (benzocaine) 10 % Gel
1 applic MUCOUS MEMBRANE DAILYPRN PRN (Reason: gum pain)
Changed
metformin 500 mg Tablet
500 mg PO BID Qty: 0 0RF
Discontinued
ibuprofen 200 mg Tablet
400 mg PO Q6HPRN PRN (Reason: head ache)
Discharge Orders:
Discharge Patient (As Directed); Ordered 11/13/24
Ordered By: Ferdinand Demarco
Discharge Date and Time
Print Language: UKRAINIAN
== END 2024-11-13 17:03 | DRG 683 ==
LOC: 3 WEST ACU 13:11
PROVIDERS: Internal Medicine Cardiovascular Disease; Physician Assistant Medical; ADMITTING PHYSICIAN Hospitalist; ATTENDING PHYSICIAN Hospitalist; CONSULT PHYSICIAN Internal Medicine Cardiovascular Disease; EMERGENCY PHYSICIAN Emergency Medicine; FAMILY PHYSICIAN Physician Assistant Medical
PROC: 5A2204Z Restoration of Cardiac Rhythm, Single (ICD-10-PCS; 2024-11-09)
DX: N17.9 Acute kidney failure, unspecified (principal); E87.0 Hyperosmolality and hypernatremia; E87.20 Acidosis, unspecified; I48.92 Unspecified atrial flutter; I45.2 Bifascicular block; I47.10 Supraventricular tachycardia, unspecified; E86.0 Dehydration; I95.9 Hypotension, unspecified; R26.2 Difficulty in walking, not elsewhere classified; L89.612 Pressure ulcer of right heel, stage 2; L89.152 Pressure ulcer of sacral region, stage 2; E53.8 Deficiency of other specified B group vitamins; E11.9 Type 2 diabetes mellitus without complications; I10 Essential (primary) hypertension; W01.0XXA Fall on same level from slipping, tripping and stumbling without subsequent striking against object, initial encounter; Z75.1 Person awaiting admission to adequate facility elsewhere; Z79.01 Long term (current) use of anticoagulants; Z79.84 Long term (current) use of oral hypoglycemic drugs
CPT/HCPCS: 93308; 70450; 71046; 76770; 80048; 80053; 80061; 81003; 81015; 82550; 82570; 82607; 82746; 82962; 83036; 83735; 83930; 83935; 84100; 84300; 84443; 85025; 85027; 87070; 87077; 87147; 87186; 87205; 92960; 93005; 93321; 93325; 96360; 97163; 97167; 97530; 99285; J0153; Q9950